=== PATIENT | female | born 1995 | race Caucasian/White ===

== ENCOUNTER 2017-04-12 05:54 | Inpatient (IN) | payer BC, MEDICAID ==
--- OUTSIDE RECORDS SUMMARY | 2017-04-12 05:57 | XMS REPORT | Continuity of Care Document ---
:1995 Author Organization [facility] [place] [address] Care Team Providers Name Role Phone Umm Marks Primary Care Provider [phone] Source Comments This disclosure is being made pursuant to the [employer] program and maynot contain all information available regarding this patient.[facility] Active Allergies and Adverse Reactions Allergen Noted Date Severity Reactions Comments Ceclor 03/20/2017 High Hives Current Medications Be aware that medications may not be up to date as of this document. Alwaysverify current medications with the patient. Prescription Sig. Disp. Refills Start Date End Date Status PROAIR HFA 108 (90 INHALE 1 - 2 5 02/15/2017 Active Base) MCG/ACT PUFFS PO Q 4 - 6 inhaler H PRN QVAR 40 MCG/ACT INHALE 2 PUFFS 2 12/11/2016 Active inhaler PO BID ipratropium-albutero USE 1 VIAL IN 0 12/23/2016 Active l (DUONEB) 0.5-2.5 NEBULIZER Q 4 H (3) MG/3ML SOLN PRF SHORTNESS OF BREATH/WHEEZE QVAR 80 MCG/ACT INHALE 1 PUFF PO 3 12/27/2016 03/20/2017 Discontinued inhaler BID FOR 30 DAYS Active Problems No known active problems Most Recent Encounters Date Type Specialty Providers Description 03/20/2017 Office Visit Family Medicine Vinicuis Buenrostro DO Annual physical exam (Primary Dx) Social History Tobacco Use Types Packs/Day Years Used Date Current Some Day Smoker Smokeless Tobacco: Never Used Alcohol Use Drinks/Week oz/Week Comments No Last Filed Vital Signs Vital Sign Reading Time Taken Blood Pressure 118/64 03/20/2017 2:10 PM CDT Pulse 99 03/20/2017 2:10 PM CDT Temperature 36 C (96.8 F) 03/20/2017 2:10 PM CDT Respiratory Rate - - Height 1.727 m (5' 8") 03/20/2017 2:10 PM CDT Weight 77.111 kg (170 lb) 03/20/2017 2:10 PM CDT Body Mass Index 25.85 03/20/2017 2:10 PM CDT Oxygen Saturation 98% 03/20/2017 2:10 PM CDT Plan of Care Health Maintenance Due Date Last Done Comments HPV Vaccine (F:9-26YO,M: 9-22) (1 of 3 - Female 3 Dose 2006 Series) Chlamydia Screening 2011 Meningococcal Vaccine (1 of 1) 2011 Pneumococcal Medium Risk 19-64 yo (1 of 1 - PPSV23) 2014 Tetanus/Pertussis (1 - Tdap) 2014 Influenza Immunization (#1) 2016 Pap Smear 2016 Results from Last 3 Months Not on file Insurance Payer Benefit Plan / Subscriber ID Type Phone Address Group [facility] [id number] [facility] [phone] [address] [place] [address] [place] [id number] Home: [phone] [place] [id number]
--- OUTSIDE RECORDS SUMMARY | 2017-04-12 06:07 | XMS REPORT | Continuity of Care Document ---
:1995 Author Organization [email or web address] [place] [address] Care Team Providers Name Role Phone Umm Marks Primary Care Provider [phone] Source Comments This disclosure is being made pursuant to the [employer] program and maynot contain all information available regarding this patient.[email or web address] Active Allergies and Adverse Reactions Allergen Noted [...] Providers Description 03/20/2017 Office Visit Family Medicine Vinicius Buenrostro DO Annual physical exam (Primary Dx) [...] / Subscriber ID Type Phone Address Group [facility] [id number] [facility] [phone] [address] [place] [address] [place] [id number] Home: [phone] [place] [id number]
[2017-04-12] MEDS: RINGERS SOLUTION,LACTATED 1,000 ML IV PRN ×2 (06:30→13:03)
[2017-04-12] MEDS ORDERED: OXYTOCIN/DEXTROSE 5%-WATER 30 UNITS/500 ML BAG IV ONE ×2 (07:36→21:40)
[2017-04-12] MEDS ORDERED: LIDOCAINE HCL 50 ML VIAL PERI PRN (07:36)
[2017-04-12] MEDS ORDERED: BUTORPHANOL TARTRATE 2 MG/ML VIAL IV PRN (07:36)
[2017-04-12] MEDS ORDERED: RINGERS SOLUTION,LACTATED 1,000 ML IV ONE (07:36)
[2017-04-12 07:56] LABS: Hematocrit 34.8 % (37.0-47.0); Hemoglobin 11.8 gm/dL (12.5-16.0); Mean Cell Volume 94.6 fl (78-100); Mean Corpuscular Hemoglobin 32.1 pg (27-31); Mean Corpuscular Hgb Conc 33.9 g/dl (32-36); Mean Platelet Volume 10.8 fl (6.0-9.5); Neutrophil # 6.1 K/mm3 (1.3-6.0); Neutrophil % 75.6 % (42-75.0); Platelet Count 109 K/mm3 (150-450); Red Blood Count 3.68 M/mm3 (4.2-5.4); Red Cell Distribution Width 12.2 % (11.5-14.0); White Blood Count 8.1 K/mm3 (4.0-10.5)
[2017-04-12] MEDS ORDERED: BUPIVACAINE HCL/0.9 % NACL/PF 250 ML EP PRN (12:01)
[2017-04-12] MEDS ORDERED: ONDANSETRON HCL/PF 2 MG/ML VIAL IV PRN (12:01)
[2017-04-12] MEDS ORDERED: NALOXONE HCL 1 MG/1 ML SYRG IV PRN (12:01)
[2017-04-12] MEDS ORDERED: fentaNYL CITRATE/PF 50 MCG/ML AMPUL IT SCH (12:15)
--- NOTE | 2017-04-12 12:25 | HP ---
Chief Complaint - Chief Complaint Date of Service: 04/12/17 Time of Service: 11:30 Chief Complaint: Sakina reports she awoke to rupture of membranes at 04:45 today, clear in color and contractions every few minutes. History of Present Illness: Sakina is a 21 yo at 39w3d gestation with ENMANUEL 04/16/2017 presents with report of SROM clear fluid and contractions every few minutes. She desires an epidural for pain relief. RN reported patient was 3cm dilated/80%/- 1 upon arrival to hospital this morning. She reports good movement, denies vaginal bleeding. OB HISTORY: 21 yo ENMANUEL 04/16/2017 by reported LMP of 07/10/2017 1. Asthma - has current Albuterol inhaler with no recent use, no hx of hospitalizations or intubations 2. Uncomplicated course LABS: O positive, antibody negative Rubella Immune, QUAD negative, CF negative VDRL non-reactive, HBsAg non-reactive, HIV non-reactive GC/CT negative/negative 1 hour GTT 105 GBS negative - Patient's Past Medical History Patient History - Medical: No pertinent hx, Seizures Patient History - Cardiac/Respiratory: Asthma - Hx of Asthma - has current Albuterol inhaler with no recent use, no hx of hospitalizations or intubations Patient History - Cancer: No Hx of Cancer Patient History - Surgical Procedures: No surgical history Patient History - Other: None LMP (Calendar): 07/10/16 - Family History Family History:: no untoward family reactions to anesthesia, no familial bleeding tendencies, no family history of clotting disorders, no family history of premature - Social History Living Situations: parents Abuse History: No History of abuse Psych History: Hx of Anxiety, Hx of Depression Does anyone smoke in the home?: Yes Smoking Status: Current every day smoker Cigarettes Packs Per Day: 1 Have you smoked in the past 12 months: Yes Do you dip or chew tobacco: No Patient requests Smoking Cessation Consult: No Alcohol Use: none Drug Use: none - Immunizations Immunizations Up to Date: No Hx Pneumococcal Vaccination: No History of Influenza Vaccine: No Review Of Systems (GEN) - Review of Systems EENTM: Present: No Symptoms Reported Respiratory: Present: No Symptoms Reported Cardiac: Present: No Symptoms Reported Abdominal: Present: Other - contractions are painful and every few minutes Genitourinary: Present: Other - leaking clear amniotic fluid Musculoskeletal: Present: No Symptoms Reported Neurological: Present: Anxiety Skin: Present: No Symptoms Reported Immunizations: IMMUNIZATION HX Immunizations Up to Date No History of Influenza Vaccine No Hx Pneumococcal Vaccination No Allergies/Adverse Reactions: Allergies Allergy/AdvReac Type Severity Reaction Status Date / Time cefaclor [From [facility]] Allergy Hives Verified 04/12/17 07:26 Home Medications: HOME MEDICATIONS Albuterol Sulfate [Proair Hfa] 90 mcg IH Q6H PRN 04/12/17 [Last Taken Unknown] Vit#96/Ferrous Fum/FA [ S] 1 tab PO DAILY 04/12/17 [Last Taken Unknown] Exam - Exam Vital Signs: Vital Signs - Last Taken Temp 36.1 C L 07/31/16 16:31 Pulse Resp BP 85/36 07/31/16 16:31 Pulse Ox FHR 135 baseline, moderate variability, + accels, category 1 FHR tracing. TOCO: contractions are every few minutes, not tracing well due to maternal position and discomfort with contractions. Cervix: 4 cm/75%/-1/soft/position/vertex, grossly ruptured with clear fluid Constitutional: Present: Cooperative, Mild distress ENT Exam: Present: normal ENT inspection, hearing grossly normal, pharynx normal , TMs normal Eye Exam: bilateral eye: normal inspection Neck: Present: non-tender, full range of motion, supple, normal inspection Back Exam: Present: normal inspection, no CVA tenderness Breasts: Present: Exam deferred Respiratory: Present: lungs clear, normal breath sounds, no respiratory distress , No rales, No wheezing Cardiovascular/Chest: Present: normal peripheral pulses, regular rate, rhythm, no edema, no gallop, no murmur Peripheral Pulses: dorsalis-pedis (R): 2+, dorsalis-pedis (L): 2+ Abdomen: Present: soft, nontender - no fundal tenderness, nondistended /Rectal: Present: Other - Cervix 4/75%/-1/soft/posterior, gross rupture of membranes - clear fluid Extremity: Present: normal range of motion, non-tender, normal inspection, no pedal edema, no calf tenderness Skin Exam: Present: normal color, warm/dry Neurologic: Present: alert, oriented x 3, other - normal mood, anxious affect Appearance: Present: appropriate appearance Eye contact: Present: cooperative, good eye contact Thoughts: Present: normal thought pattern Diagnostic Studies: Abnormal Lab Results 04/12/17 Range/Units 07:50 RBC 3.68 L (4.2-5.4) M/mm3 Hgb 11.8 L (12.5-16.0) gm/dL Hct 34.8 L (37.0-47.0) % MCH 32.1 H (27-31) pg Plt Count 109 L (150-450) K/mm3 MPV 10.8 H (6.0-9.5) fl Immature Gran % (Auto) 0.50 H (0.001-0.429) % Immature Gran # (Auto) 0.04 H (0.000-0.0310) K/mm3 Neutrophils % 75.6 H (42-75.0) % Lymphocytes % 18.1 L (20-51) % Neutrophils # 6.1 H (1.3-6.0) K/mm3 Laboratory Results WBC 8.1 K/mm3 (4.0-10.5) 04/12/17 07:50 RBC 3.68 M/mm3 (4.2-5.4) L 04/12/17 07:50 Hgb 11.8 gm/dL (12.5-16.0) L 04/12/17 07:50 Hct 34.8 % (37.0-47.0) L 04/12/17 07:50 MCV 94.6 fl (78-100) 04/12/17 07:50 MCH 32.1 pg (27-31) H 04/12/17 07:50 MCHC 33.9 g/dl (32-36) 04/12/17 07:50 RDW 12.2 % (11.5-14.0) 04/12/17 07:50 Plt Count 109 K/mm3 (150-450) L 04/12/17 07:50 MPV 10.8 fl (6.0-9.5) H 04/12/17 07:50 Immature Gran % (Auto) 0.50 % (0.001-0.429) H 04/12/17 07:50 Immature Gran # (Auto) 0.04 K/mm3 (0.000-0.0310) H 04/12/17 07:50 Neutrophils % 75.6 % (42-75.0) H 04/12/17 07:50 Lymphocytes % 18.1 % (20-51) L 04/12/17 07:50 Monocytes % 5.1 % (0.0-9) 04/12/17 07:50 Eosinophils % 0.5 % (0.0-3.0) 04/12/17 07:50 Basophils % 0.2 % (0.0-1.0) 04/12/17 07:50 Nucleated RBC % 0.0 k/mm3 (0-1) 04/12/17 07:50 Neutrophils # 6.1 K/mm3 (1.3-6.0) H 04/12/17 07:50 Lymphocytes # 1.5 k/mm3 (1.5-3.5) 04/12/17 07:50 Monocytes # 0.4 k/mm3 (0.0-1.0) 04/12/17 07:50 Eosinophils # 0.0 k/mm3 (0.0-0.7) 04/12/17 07:50 Absolute Basophils 0.0 k/mm3 (0.0-0.1) 04/12/17 07:50 Blood Type O Positive 04/12/17 07:50 Antibody Screen Negative 04/12/17 07:50 Assessment/Plan - Narrative Narrative: 21 yo at 39w3d gestation with SROM and labor. PLAN: 1. Pt with 1 cm of cervical change in last 5 hours. Will initiate IV Pitocin per low dose protocol. Risks, benefits, side effects, and alternatives d/w pt. She verbalized understanding and agrees to proceed with Pitocin. 2. May have epidural for pain relief after giving 1 liter LR bolus. 3. FHR category 1 tracing. 4. GBS negative - no antibiotics indicated. 5. Patient's plan reviewed and discussed. Pt is okay is Pitocin. Pt counseled episiotomy is not routinely performed and is reserved only for obstetrical emergency to deliver baby with dystocia. She verbalized understanding all questions answered.
--- NOTE | 2017-04-12 12:38 | OR ---
Anesthesia Procedure Note - Anesthesia Procedure Note Narrative: Vital Signs - Last Taken Temp 36.8 C 04/12/17 11:55 Pulse 20 L 04/12/17 11:55 Resp 20 04/12/17 11:55 BP 115/63 04/12/17 11:55 Pulse Ox 99 04/12/17 11:55 04/12/17 12:38 ANESTHESIA PROCEDURE NOTE Date of Procedure: 04/12/2017 Time of procedure: 1220. Performed by: Karson Haines CRNA Starch Mangle Tender: None. Preprocedure diagnosis: Active labor. Post procedure diagnosis: Same. Procedure: Insertion of labor epidural. Indications: The patient is a 21 -year-old prima para female in active labor requesting labor epidural for pain management. Findings: See below. Details of the procedure: The patient was placed in a sitting position. Back was prepped with DuraPrep. Patient was then draped in a sterile fashion. Lidocaine 1% was infiltrated to the skin and subcutaneous tissues at the level of the L3 4 interspace. The epidural space was identified using a 18-gauge Tuohy needle with [id number] technique. 20 mcg fentanyl was given intrathecally using a 27 ga. spinal needle. Epidural catheter was inserted without difficulty. Negative test dose was elicited using 5 mL of 1.5% preservative-free lidocaine plus epinephrine 1 200,000. The epidural catheter was then taped and secured in place. EBL: Minimal. Fluids: N/A. Specimen: N/A. Post procedure condition: The patient tolerated the procedure well. No complications were noted. Thank you for this consultation. Villa CRNA
--- NOTE | 2017-04-12 14:54 | PN ---
Progess Note - Interim Narrative: 04/12/17 14:37 Sakina reports good pain control s/p epidural. She is on pitocin, currently on 4 mu/min. FHR 125 moderate variability, + accels, intermittent variable decels, category 2 tracing. TOCO: contractions are 1-2 minutes apart and palpate strong Cervix: 4cm/75%/-1/soft/mid-position. IUPC placed. General: Alert and oriented x3, no acute distress Abdomen: gravid, soft, non-tender IMPRESSION: 21 yo P0 at 39w3d weeks gestation with SROM PLAN: 1. Uterine tachysystole, RN instructed to cut pitocin in half for 30 minutes and then reassess, if tachysystole persists, will turn pitocin off. RN giving IVF bolus 500ml LR and maternal repositioning. 2. IUPC placed. PT without cervical change since admission. Contractions appear to be adequate, in fact they demonstrate tachysystole. Concern for failure to progress. Pt counseled on potential for delivery if no further cervical change. 3. Re-check cervix in 2 hours and if no futher change, will proceed with delivery. 4. Epidural appears effective 5. FHR category 2 tracing, will continue with continuous EFM.
--- NOTE | 2017-04-12 18:38 | PN ---
Progess Note - Interim Narrative: 04/12/17 18:34 Sakina reports good pain control with epidural. Denies pelvic and rectal pressure or any urge to push. FHR 130 moderate variability + accels, no decels TOCO: contractions are 2-3 minutes apart Cervix: complete/100%/+2 General: Alert and oriented x3, no acute distress Abdomen: Gravid, soft between contractions. Plan: 1. Will labor down and begin pushing when patient has urge to push. 2. FHR reassuring.
[2017-04-12] MEDS ORDERED: KETOROLAC TROMETHAMINE 30 MG/ML VIAL IV ONE (20:54)
[2017-04-12] MEDS ORDERED: HYDROCORTISONE 30 APPL TUBE TP PRN (21:40)
[2017-04-12] MEDS ORDERED: RINGERS SOLUTION,LACTATED 1,000 ML IV PRN (21:40)
[2017-04-12] MEDS ORDERED: SENNOSIDES 8.6 MG TABLET PO PRN (21:40)
[2017-04-12] MEDS ORDERED: GLYCERIN/WITCH HAZEL LEAF 40 APPL BOX TP PRN (21:40)
[2017-04-12] MEDS ORDERED: BENZOCAINE/MENTHOL 81 SPRAY CAN TP PRN (21:40)
[2017-04-12] MEDS ORDERED: BISACODYL 10 MG SUPP.RECT RC PRN (21:40)
[2017-04-12] MEDS ORDERED: diphenhydrAMINE HCL 25 MG CAPSULE PO PRN (21:40)
[2017-04-12] MEDS ORDERED: ALBUTEROL SULFATE 200 PUFF INHALER IH PRN (21:42)
--- NOTE | 2017-04-12 21:49 | OR ---
Operative Report - Dictated Report Narrative: DELIVERY NOTE DATE OF DELIVERY: 04/12/2017 TIME OF DELIVERY: 20:38 DELIVERING PHYSICIAN: Rajat Way MD Sakina progressed to complete [id number]%/+2 station. She labored down for about 2 hours. She pushed for < 5 minutes and delivered a liveborn term male in the cephalic presentation, DEO position, with nuchal cord x1, loose and easily reduced, over an intact perineum. Baby weight was 8 lb, 4.4 oz, 3754 grams, and Apgars were 9 at one minute and 9 at five minutes. Placenta was delivered spontaneously and intact. Small first degree vaginal laceration noted at the hymen was repaired with 2-0 vicryl with excellent hemostasis. Fundus is firm. EBL 300 ml. Baby is vigorous and moving all 4 extremities spontaneously and well. Mom and baby doing well in LDRP.
[2017-04-13] MEDS: HYDROcodone/ACETAMINOPHEN 1 EACH TABLET PO PRN ×2 (01:23→12:03)
[2017-04-13] MEDS: IBUPROFEN 600 MG TABLET PO PRN ×3 (04:58→20:07)
[2017-04-13] MEDS: PRENATAL VIT#96/FERROUS FUM/FA 1 TAB TABLET PO SCH (09:52)
[2017-04-13] MEDS: DOCUSATE SODIUM 100 MG CAPSULE PO SCH ×2 (09:52→20:07)
--- NOTE | 2017-04-13 10:14 | PN ---
Subjective - Date and Time Seen Date: 04/13/17 Time: 10:00 Subjective Narrative: Sakina reports labial pain. Pain is well controlled. Minimal lochia. Breast feeding. Tolerating regular diet without nausea/vomiting. Ambulating and voiding well. Objective - Review of Systems Generalized/Overall Review: Reports: No Symptoms Reported EENTM: Reports: No Symptoms Reported Respiratory: Reports: No Symptoms Reported Cardiac: Reports: No Symptoms Reported Abdominal: Reports: No Symptoms Reported Genitourinary Symptoms: Reports: No Symptoms Reported Musculoskeletal Complaints: Reports: No Symptoms Reported Neurological: Reports: No Symptoms Reported Skin: Reports: No Symptoms Reported Endocrine: Reports: No Symptoms Reported - Vitals Vitals: Last Vital Signs Temp 36.8 C 04/13/17 02:20 Pulse 85 04/13/17 02:20 Resp 16 04/13/17 02:20 BP 108/53 04/13/17 02:20 Pulse Ox 97 04/13/17 02:20 - Exam Constitutional: Present: Oriented x3, Cooperative, No distress ENT Exam: Present: normal ENT inspection, hearing grossly normal, pharynx normal Neck: Present: non-tender, full range of motion, supple, normal inspection Breasts: Present: Exam deferred Respiratory: Present: lungs clear, normal breath sounds, no respiratory distress , No rales, No wheezing Cardiovascular/Chest: Present: normal peripheral pulses, regular rate, rhythm, no edema, no gallop, no murmur Abdomen: Present: Normal bowel sounds, soft, nontender, nondistended /Rectal: Present: Other - slight labial swelling, fluctuant, no bleeding, no hematoma Extremity: Present: normal range of motion, non-tender, normal inspection, no pedal edema, no calf tenderness Skin Exam: Present: normal color Neurologic: Present: normal mood/affect Appearance: Present: appropriate appearance Eye contact: Present: cooperative Thoughts: Present: normal thought pattern Cauti Physician Documentation - Urinary Catheter Management Urethral (Ramirez) Date of Insertion: 04/12/17 Time of Insertion: 12:45 Date of Removal: 04/12/17 Time of Removal: 20:15 Assessment/Plan Plan Narrative: 21 yo PPD#1 s/p doing well. PLAN: 1. Routine care. 2. Ambulate QID and prn. 3. NSAIDs and [place] prn pain. 4. Fever/ bleeding precautions d/w pt 5. Ice packs to vagina prn 6. Plan discharge home tomorrow if stable.
[2017-04-14] MEDS: HYDROcodone/ACETAMINOPHEN 1 EACH TABLET PO PRN (01:04)
[2017-04-14 08:16] VITALS: BP 106/51
--- NOTE | 2017-04-14 10:41 | PN ---
Subjective - Date and Time Seen Date: 04/14/17 Subjective Narrative: day 2, s/p doing well. . normal lochia. Objective - Vitals Vitals: Last Vital Signs Temp 36.8 C 04/14/17 06:50 Pulse 87 04/14/17 06:50 Resp 18 04/14/17 06:50 BP 106/51 04/14/17 06:50 Pulse Ox 97 04/14/17 06:50 - Exam Constitutional: Present: Alert, Oriented x3, Cooperative Respiratory: Present: no respiratory distress Cardiovascular/Chest: Present: normal peripheral pulses Abdomen: Present: soft, nontender, nondistended, other - fundus firm at umbilicus and non-tender Extremity: Present: normal range of motion, no pedal edema, no calf tenderness Skin Exam: Present: normal color, warm/dry, no cyanosis Eye contact: Present: cooperative, good eye contact, normal speech Cauti Physician Documentation - Urinary Catheter Management Urethral (Ramirez) Date of Insertion: 04/12/17 Time of Insertion: 12:45 Date of Removal: 04/12/17 Time of Removal: 20:15 Assessment/Plan Plan Narrative: A: day 2, s/p stable and well. Plan: will discharge home today. Lacy Vides MD
[2017-04-14] MEDS: oxyCODONE HCL/ACETAMINOPHEN 1 TAB TABLET PO PRN ×2 (11:04→16:49)
[2017-04-14] MEDS: DOCUSATE SODIUM 100 MG CAPSULE PO SCH (11:04)
[2017-04-14] MEDS: IBUPROFEN 600 MG TABLET PO PRN ×2 (11:04→20:27)
[2017-04-14] MEDS: PRENATAL VIT#96/FERROUS FUM/FA 1 TAB TABLET PO SCH (11:04)
== END 2017-04-14 20:40 | disposition home or self-care (01) | DRG 775 ==
LOC: OBCLINIC 05:54 → OB 06:04
PROVIDERS: ADMIT Obstetrics & Gynecology; ATTEND Obstetrics & Gynecology
PROC: 10E0XZZ Delivery of Products of Conception, External Approach (ICD-10-PCS; principal; 2017-04-12)
PROC: 4A1HXCZ Monitoring of Products of Conception, Cardiac Rate, External Approach (ICD-10-PCS; 2017-04-12)
PROC: 0HQ9XZZ Repair Perineum Skin, External Approach (ICD-10-PCS; 2017-04-12)
PROC: 00HU33Z Insertion of Infusion Device into Spinal Canal, Percutaneous Approach (ICD-10-PCS; 2017-04-12)
DX: O69.81X0 Labor and delivery complicated by cord around neck, without compression, not applicable or unspecified (principal); O70.0 First degree perineal laceration during delivery; O42.02 Full-term premature rupture of membranes, onset of labor within 24 hours of rupture; J45.909 Unspecified asthma, uncomplicated; Z3A.39 39 weeks gestation of pregnancy; Z37.0 Single live birth